=== PATIENT | female | born 1995 | race Caucasian/White ===

== ENCOUNTER 2021-07-22 06:39 | Emergency (ER) | payer OTHER ==
[~2021-07-22] VITALS: Ht 149.9 cm; Wt 44.5 kg
[2021-07-22] MEDS ORDERED: PRENA1 TRUE CO1 EACH PO (06:44)
== END 2021-07-22 11:59 | disposition home or self-care (01) ==
LOC: ER 06:39
DX: O20.9 Hemorrhage in early pregnancy, unspecified (principal); Z3A.01 Less than 8 weeks gestation of pregnancy

== ENCOUNTER 2021-07-25 06:51 | Day surgery (SDC) | payer OTHER ==
[~2021-07-25 06:51] MED LIST: PRENA1 TRUE CO1 EACH PO
== END 2021-07-25 18:30 | disposition home or self-care (01) ==
LOC: CIR.AMB 06:51
PROVIDERS: ATTEND Obstetrics & Gynecology
DX: O02.1 Missed abortion (principal); Z20.822 Contact with and (suspected) exposure to COVID-19

== ENCOUNTER 2022-07-11 13:30 | Inpatient (IN) | payer OTHER ==
[~2022-07-11] VITALS: Ht 149.9 cm; Wt 58.1 kg
[2022-07-27] MEDS ORDERED: IBUPROFEN400 MG PO (10:13)
== END 2022-07-27 15:50 | disposition home or self-care (01) | DRG 807 ==
LOC: EDSTATUS 13:30 → LDR 07-25 08:17 → OB/GYN 07-25 08:17 → LDR 07-27 13:30 → OB/GYN 07-27 15:50
PROVIDERS: ADMIT Obstetrics & Gynecology; ATTEND Obstetrics & Gynecology
PROC: 10E0XZZ Delivery of Products of Conception, External Approach (ICD-10-PCS; principal; 2022-07-25)
PROC: 0W8NXZZ Division of Female Perineum, External Approach (ICD-10-PCS; 2022-07-25)
PROC: 4A1HXCZ Monitoring of Products of Conception, Cardiac Rate, External Approach (ICD-10-PCS; 2022-07-25)
DX: O80 Encounter for full-term uncomplicated delivery (principal); Z37.0 Single live birth; Z3A.39 39 weeks gestation of pregnancy; Z20.822 Contact with and (suspected) exposure to COVID-19

== ENCOUNTER 2023-05-02 14:15 | Outpatient (CLI) | payer OTHER ==
[~2023-05-02 14:15] MED LIST changes: +IBUPROFEN400 MG PO
== END 2023-05-02 16:53 | disposition home or self-care (01) ==
LOC: PRENATAL 14:15
PROVIDERS: ATTEND Obstetrics & Gynecology Maternal & Fetal Medicine
DX: O35.9XX0 Maternal care for (suspected) fetal abnormality and damage, unspecified, not applicable or unspecified (principal); O35.3XX0 Maternal care for (suspected) damage to fetus from viral disease in mother, not applicable or unspecified; O44.00 Complete placenta previa NOS or without hemorrhage, unspecified trimester; O26.879 Cervical shortening, unspecified trimester; O28.3 Abnormal ultrasonic finding on antenatal screening of mother; Z3A.20 20 weeks gestation of pregnancy

== ENCOUNTER 2023-07-30 15:46 | Outpatient (CLI) | payer OTHER | END 2023-07-30 15:49 | disposition home or self-care (01) | LOC: PRENATAL 15:46 | PROVIDERS: ATTEND Obstetrics & Gynecology Maternal & Fetal Medicine | DX: O26.849 Uterine size-date discrepancy, unspecified trimester (principal); O28.3 Abnormal ultrasonic finding on antenatal screening of mother; O36.8199 Decreased fetal movements, unspecified trimester, other fetus; Z3A.32 32 weeks gestation of pregnancy ==